=== PATIENT | male | born 1950 | race Caucasian/White ===

== ENCOUNTER 2020-12-14 08:48 | Outpatient (CLI) | payer MEDICARE, SELFPAY ==
[2020-12-14 09:33] LABS: Alanine Aminotransferase 12 U/L (4-50); Albumin Level 4.5 g/dL (3.5-5.1); Alkaline Phosphatase 51 U/L (38-126); Anion Gap 6 mmol/L (8-16); Aspartate Amino Transferase 19 U/L (17-59); Bilirubin,Total 0.5 mg/dL (0.2-1.3); Blood Urea Nitrogen 12 mg/dL (9-20); Calcium 8.9 mg/dL (8.4-10.2); Carbon Dioxide 30 mmol/L (22-30); Chloride 102 mmol/L (98-107); Cholesterol 126 mg/dL (0-200); Estimated Glomerular Filt Rate > 60; Glucose 194 mg/dL (75-110); HDL Direct 44 mg/dL; Potassium 4.6 mmol/L (3.4-5.0); Sodium 138 mmol/L (137-145); Triglycerides 148 mg/dL (<150)
[2020-12-14 09:44] LABS: LDL Cholesterol Direct 54 mg/dL
== END 2020-12-14 08:49 | disposition home or self-care (01) ==
PROVIDERS: PCP Family Medicine; Visit Provider Internal Medicine Cardiovascular Disease
DX: I42.0 Dilated cardiomyopathy (principal); I50.42 Chronic combined systolic (congestive) and diastolic (congestive) heart failure; I25.10 Atherosclerotic heart disease of native coronary artery without angina pectoris; E78.00 Pure hypercholesterolemia, unspecified
CPT/HCPCS: 36415; 80053; 80061

== ENCOUNTER 2022-02-07 16:10 | Emergency (ER) | payer MEDICARE, SELFPAY ==
[2022-02-07 16:29] VITALS: BP 109/58; PULSE 77; RESP 18; TEMP 36.3; O2SAT 100
--- NOTE | 2022-02-07 16:54 | ED.URI ---
HPI - URI/Sore Throat General Chief Complaint: Upper Respiratory Infection Stated Complaint: Sore Throat,Body Aches,Cough,Headache Time Seen by Provider: 02/07/22 16:55 History of Present Illness HPI Narrative: Gary Garcia is a 31-year-old male with a PMH of depression, high blood pressure, anxiety, diabetes, high cholesterol, and heart failure who comes with 5-7 days of cough sinus drainage and sinus pressure. He states that he sometimes feels like it is getting better and then his cough returns he has a lot of sinus pressure and congestion but does not feel like he is congested in the chest. Historically he has diabetes that is rubs on the high side, he has hypertension that is well controlled and he has congestive heart failure with an ejection fraction of the right at 30% which is up from 15 to 20% a little over a year ago, he is not currently wearing a LifeVest-ICD is now in place Related Data Home Medications Medication Instructions Recorded Confirmed ascorbic acid (vitamin C) 500 mg 500 mg PO DAILY 08/01/19 02/07/22 capsule aspirin 81 mg tablet,delayed 81 mg PO DAILY 08/01/19 02/07/22 release (Adult Low Dose Aspirin) cholecalciferol (vitamin D3) 10 1,000 unit PO DAILY 08/01/19 02/07/22 mcg (400 unit) capsule sacubitril 97 mg-valsartan 103 mg 1 tablet PO BID 05/28/20 02/07/22 tablet (Entresto) polysaccharide iron complex 150 mg 150 mg PO DAILY 11/27/21 02/07/22 iron capsule (Poly-Iron) Allergies Allergy/AdvReac Type Severity Reaction Status Date / Time cyclobenzaprine Allergy Unknown Unknown Verified 02/07/22 16:44 Review of Systems Review of Systems: CONSTITUTIONAL: Denies fever, chills, sweats. EYES: Denies visual changes, redness, discharge. ENT: Some rhinorrhea, has congestion, mild sore throat, otalgia. CARDIOVASCULAR: Denies chest pain, palpitations, edema. RESPIRATORY: Denies dyspnea, wheezing, has cough GASTROINTESTINAL: Denies abdominal pain, nausea, vomiting, diarrhea. GENITOURINARY: Denies dysuria, hematuria, abnormal discharge SKIN: Denies rash or itching. NEUROLOGIC: Denies numbness, or focal weakness. PSYCHIATRIC: Denies anxiety or depression. 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 Ischemic cardiomyopathy Mixed hyperlipidemia Surgical History Surgical History Hx laparoscopic cholecystectomy Family History Family History Father Family history of cardiovascular disease Mother Patient's mother is in good health Social History Social History Social History: Smoking packs per day: 2 Smoking cigarettes per day: 40.0 Smoking status: Former smoker Tobacco type: cigarettes Second hand tobacco smoke exposure: No Smoking end date: 06/21/86 Alcohol intake: current Alcohol use details: occasionally Substance use: never Substance use type: does not use Gender identity (if verbalized by the patient): Male Sexual Orientation (if Verbalized by the Patient): Straight or Heterosexual Comments At time of signature, I agree with nursing past medical, surgical, social and family history. There is no relevant family history pertinent to the presenting complaint. Exam Narrative: GENERAL: This is a well-nourished, well-developed patient, in mild distress. HEAD: normocephalic, atraumatic. EYES: Sclera clear/white. Vision is grossly intact. EARS: External ears normal, . Hearing grossly intact. NOSE: External nose no
== END 2022-02-07 17:20 | disposition home or self-care (01) ==
PROVIDERS: Emergency Provider Nurse Practitioner; PCP Family Medicine
DX: J32.9 Chronic sinusitis, unspecified (principal); Z87.891 Personal history of nicotine dependence; I25.10 Atherosclerotic heart disease of native coronary artery without angina pectoris; I11.0 Hypertensive heart disease with heart failure; I50.40 Unspecified combined systolic (congestive) and diastolic (congestive) heart failure; E11.9 Type 2 diabetes mellitus without complications; Z86.73 Personal history of transient ischemic attack (TIA), and cerebral infarction without residual deficits; E78.2 Mixed hyperlipidemia; Z95.810 Presence of automatic (implantable) cardiac defibrillator; Z79.82 Long term (current) use of aspirin; F41.9 Anxiety disorder, unspecified; F32.A Depression, unspecified
CPT/HCPCS: 87804; 99213; G0463

== ENCOUNTER 2022-02-13 10:48 | Emergency (ER) | payer MEDICARE, SELFPAY ==
[2022-02-13 10:58] VITALS: BP 127/75; PULSE 81; RESP 18; TEMP 37.1; O2SAT 98
--- NOTE | 2022-02-13 11:02 | ED.URI ---
HPI - URI/Sore Throat General Chief Complaint: Upper Respiratory Infection Stated Complaint: Head Congestion Time Seen by Provider: 02/13/22 11:02 Source: patient Mode of arrival: ambulatory Limitations: no limitations History of Present Illness HPI Narrative: 71-year-old male presents with complaint of sinus congestion, sinus pressure and pain, runny nose, postnasal drainage, cough for approximately 10 days. Reports that he was seen on 02/07 for similar symptoms. Was given Z-Lior and Tessalon Perles. Reports no relief of symptoms, states that sinus pressure and pain is worse. Afebrile. Is using Coricidin and Flonase. All systems reviewed and negative except as noted above. Related Data Home Medications Medication Instructions Recorded Confirmed ascorbic acid (vitamin C) 500 mg 500 mg PO DAILY 08/01/19 02/13/22 capsule aspirin 81 mg tablet,delayed 81 mg PO DAILY 08/01/19 02/13/22 release (Adult Low Dose Aspirin) cholecalciferol (vitamin D3) 10 1,000 unit PO DAILY 08/01/19 02/13/22 mcg (400 unit) capsule sacubitril 97 mg-valsartan 103 mg 1 tablet PO BID 05/28/20 02/13/22 tablet (Entresto) polysaccharide iron complex 150 mg 150 mg PO DAILY 11/27/21 02/13/22 iron capsule (Poly-Iron) Allergies Allergy/AdvReac Type Severity Reaction Status Date / Time cyclobenzaprine Allergy Unknown Unknown Verified 02/13/22 10:52 Review of Systems Review of Systems: CONSTITUTIONAL: Denies fever, chills, or sweats. EYES: Denies visual changes, redness, or discharge. ENT: Reports rhinorrhea, congestion, postnasal drainage, sinus pressure and pain. Denies sore throat, or otalgia. CARDIOVASCULAR: Denies chest pain, palpitations, or edema. RESPIRATORY: Reports cough. Denies dyspnea. GASTROINTESTINAL: Denies abdominal pain, nausea, vomiting, or diarrhea. GENITOURINARY: Denies dysuria or hematuria. SKIN: Denies rash or itching. MUSCULOSKELETAL: Denies back pain, joint pain, or myalgia. NEUROLOGIC: Denies headache, numbness, or weakness. PSYCHIATRIC: Denies anxiety or depression. All other systems reviewed are negative, except as documented in HPI. 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 Ischemic cardiomyopathy Mixed hyperlipidemia Surgical History Surgical History Hx laparoscopic cholecystectomy Family History Family History Father Family history of cardiovascular disease Mother Patient's mother is in good health Social History Social History Social History: Smoking packs per day: 2 Smoking cigarettes per day: 40.0 Smoking status: Former smoker Tobacco type: cigarettes Second hand tobacco smoke exposure: No Smoking end date: 06/21/86 Alcohol intake: current Alcohol use details: occasionally Substance use: never Substance use type: does not use Gender identity (if verbalized by the patient): Male Sexual Orientation (if Verbalized by the Patient): Straight or Heterosexual Comments At time of signature, agree with nursing past medical, surgical, social and family history. There is no relevant family history pertinent to the presenting complaint. Exam Narrative: GENERAL: This is a well-nourished, well-developed patient, in no apparent distress. HEAD: normocephalic, atraumatic. EYES: PERRL. Sclera clear/white. Vision is grossly intact. EARS: External ears normal, auditory canals clear and without drainage, fluid to bilateral TMs with no erythema o
== END 2022-02-13 11:12 | disposition home or self-care (01) ==
PROVIDERS: Emergency Provider Nurse Practitioner Family; PCP Family Medicine
DX: J01.90 Acute sinusitis, unspecified (principal); Z87.891 Personal history of nicotine dependence; I25.10 Atherosclerotic heart disease of native coronary artery without angina pectoris; I11.0 Hypertensive heart disease with heart failure; I50.40 Unspecified combined systolic (congestive) and diastolic (congestive) heart failure; E11.9 Type 2 diabetes mellitus without complications; Z86.73 Personal history of transient ischemic attack (TIA), and cerebral infarction without residual deficits; Z95.810 Presence of automatic (implantable) cardiac defibrillator; E78.2 Mixed hyperlipidemia; Z79.82 Long term (current) use of aspirin
CPT/HCPCS: 99213; G0463

== ENCOUNTER 2022-08-18 11:51 | Outpatient (CLI) | payer MEDICARE, SELFPAY ==
--- NOTE | ~2022-08-18 | XR_ITS ---
EXAM: XR knee RT min 4V DATE: 08/18/2022 12:16 HISTORY: M25.461 - Effusion, right knee INSTABILITY PAIN . COMPARISON: None available. FINDINGS: Normal mineralization. No fracture or dislocation. No lytic or blastic lesion. Moderate me dial joint space narrowing. Tricompartmental osteophytosis severe in the patellofemoral compartment. No erosion or periosteal change. Vascular calcifications. Moderate volume joint fluid. IMPRESSION: Tricompartmental osteoarthritic change. Moderate joint effusion. Reviewed, dictated and finalized at location K. BRAZER TESTER
== END 2022-08-18 11:52 | disposition home or self-care (01) ==
LOC: ANHIMG 11:54
PROVIDERS: PCP Family Medicine; Visit Provider Nurse Practitioner Gerontology
DX: M25.461 Effusion, right knee (principal); M17.11 Unilateral primary osteoarthritis, right knee
CPT/HCPCS: 73564

== ENCOUNTER 2022-08-29 10:07 | Emergency (ER) | payer MEDICARE, SELFPAY ==
[2022-08-29 10:36] VITALS: BP 135/69; PULSE 93; RESP 20; TEMP 37; O2SAT 100
--- NOTE | 2022-08-29 10:47 | ED.URI ---
HPI - URI/Sore Throat General Chief Complaint: Upper Respiratory Infection Stated Complaint: sorethroat,cough Time Seen by Provider: 08/29/22 10:48 Source: patient and RN notes reviewed Mode of arrival: ambulatory Limitations: no limitations History of Present Illness HPI Narrative: 71-year-old male with a history of CHF and DM, presented for complaint of sore throat, sinus congestion and drainage, headache and fatigue, onset yesterday. He endorses he started with a cough today. He denies sick contacts. He is taking Coricidin for symptoms. He denies Chest pain, palpitations, shortness of breath, wheezing, nausea, vomiting, diarrhea, fevers or chills. Patient does have pacemaker/defibrillator. MD elicited complaint: cough Related Data Home Medications Medication Instructions Recorded Confirmed ascorbic acid (vitamin C) 500 mg 500 mg PO DAILY 08/01/19 08/29/22 capsule aspirin 81 mg tablet,delayed 81 mg PO DAILY 08/01/19 08/29/22 release (Adult Low Dose Aspirin) cholecalciferol (vitamin D3) 10 1,000 unit PO DAILY 08/01/19 08/29/22 mcg (400 unit) capsule polysaccharide iron complex 150 mg 150 mg PO DAILY 11/27/21 08/29/22 iron capsule (Poly-Iron) sacubitril 97 mg-valsartan 103 mg 3 tablet PO BID 06/17/22 08/29/22 tablet (Entresto) Allergies Allergy/AdvReac Type Severity Reaction Status Date / Time cyclobenzaprine Allergy Unknown Unknown Verified 08/29/22 10:38 Review of Systems Review of Systems: per HPI [facility] Past Medical History Medical History BP (high blood pressure) CAD (coronary artery disease) Chronic anemia Combined congestive systolic and diastolic heart failure Diabetes mellitus Dilated cardiomyopathy History of CVA (cerebrovascular accident) 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 Ischemic cardiomyopathy Mixed hyperlipidemia Surgical History Surgical History H/O knee surgery History of back surgery History of carpal tunnel surgery Hx laparoscopic cholecystectomy Hx of hernia repair Family History Family History Father Family history of cardiovascular disease Mother Patient's mother is in good health Social History Social History Social History: Smoking packs per day: 2 Smoking cigarettes per day: 40.0 Smoking status: Former smoker Tobacco type: cigarettes Second hand tobacco smoke exposure: No Smoking end date: 06/21/86 Alcohol intake: current Alcohol use details: occasionally Substance use: never Substance use type: does not use Gender identity (if verbalized by the patient): Male Sexual Orientation (if Verbalized by the Patient): Straight or Heterosexual Exam Narrative: GENERAL: Ill-appearing, nontoxic no acute distress. HEAD: Normocephalic EYES: PERRLA, conjunctivae clear ENT: Mucous membranes moist. TM pearly martinez with dull light reflex bilaterally; no tragal tenderness. Oropharynx normal without lesions or exudate, no drooling, no hoarseness, no trismus, uvula midline. No tripod positioning, muffled voice, soft palate or pharyngeal wall bulging NECK: Supple. No lymphadenopathy CHEST: Clear to auscultation, breath sounds equal. No wheezing, rhonchi, rales, or stridor. No respiratory distress, speaks in full sentences. HEART: Regular rate and rhythm. No murmur heard. SKIN: Warm, dry, no rash. NEURO: Alert and oriented x3. PSYCH: Normal mood and affect Course Course Emergency Course: Patient is aware of diagnosis, understands and agrees to treatment plan. Anticipatory guidance given. Patient agrees to follow-up as directed and is aware of reasons to seek care at the emergency department. Portions of this record may have been cr
== END 2022-08-29 11:15 | disposition home or self-care (01) ==
PROVIDERS: Emergency Provider Nurse Practitioner Family; PCP Family Medicine
DX: B34.9 Viral infection, unspecified (principal); Z20.822 Contact with and (suspected) exposure to COVID-19; Z87.891 Personal history of nicotine dependence; I25.10 Atherosclerotic heart disease of native coronary artery without angina pectoris; I11.0 Hypertensive heart disease with heart failure; I50.40 Unspecified combined systolic (congestive) and diastolic (congestive) heart failure; E11.9 Type 2 diabetes mellitus without complications; Z86.73 Personal history of transient ischemic attack (TIA), and cerebral infarction without residual deficits; E78.2 Mixed hyperlipidemia; Z95.810 Presence of automatic (implantable) cardiac defibrillator; Z79.82 Long term (current) use of aspirin
CPT/HCPCS: 87426; 99213; C9803; G0463

== ENCOUNTER 2022-10-21 11:38 | Emergency (ER) | payer MEDICARE, SELFPAY ==
[2022-10-21 11:54] VITALS: BP 128/59; PULSE 78; RESP 20; TEMP 36.4; O2SAT 100
--- NOTE | 2022-10-21 12:14 | ED.URI ---
HPI - URI/Sore Throat General Chief Complaint: Upper Respiratory Infection Stated Complaint: congestion,cough Time Seen by Provider: 10/21/22 12:25 Source: patient and RN notes reviewed Mode of arrival: ambulatory Limitations: no limitations History of Present Illness HPI Narrative: 72-year-old male presents concern for 2 day history of sore throat, rhinorrhea, postnasal drainage, cough. He denies fever, aches, chills, sweats. Reports his granddaughter had strep throat, he was exposed to her couple weeks ago MD elicited complaint: cough, sore throat and rhinorrhea Related Data Home Medications Medication Instructions Recorded Confirmed ascorbic acid (vitamin C) 500 mg 500 mg PO DAILY 08/01/19 10/21/22 capsule aspirin 81 mg tablet,delayed 81 mg PO DAILY 08/01/19 10/21/22 release (Adult Low Dose Aspirin) cholecalciferol (vitamin D3) 10 1,000 unit PO DAILY 08/01/19 10/21/22 mcg (400 unit) capsule polysaccharide iron complex 150 mg 150 mg PO DAILY 11/27/21 10/21/22 iron capsule (Poly-Iron) sacubitril 97 mg-valsartan 103 mg 3 tablet PO BID 06/17/22 10/21/22 tablet (Entresto) carvedilol 25 mg tablet 25 mg PO Q12H 09/24/22 10/21/22 fluticasone propionate 50 2 spray intranasal DAILY 09/24/22 10/21/22 mcg/actuation nasal spray,suspension Allergies Allergy/AdvReac Type Severity Reaction Status Date / Time cyclobenzaprine AdvReac Unknown Unknown Verified 10/21/22 11:49 flexeril AdvReac Unknown Unknown Uncoded 10/21/22 11:49 spironolactone AdvReac Unknown Unknown Uncoded 10/21/22 11:49 Review of Systems Review of Systems: CONSTITUTIONAL: Denies malaise, chills, sweats, or fever. EYES: Denies visual changes, redness, or discharge. ENT: Reports rhinorrhea, congestion, and sore throat. CARDIOVASCULAR: Denies chest pain, palpitations, or edema. RESPIRATORY: Reports cough. Denies dyspnea. GASTROINTESTINAL: Denies abdominal pain, nausea, vomiting, diarrhea SKIN: Denies rash or itching. MUSCULOSKELETAL: Denies myalgia. NEUROLOGIC: Denies headache. 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 Ischemic cardiomyopathy Mixed hyperlipidemia Pacemaker Surgical History Surgical History (Updated 09/24/22 @ 09:16 by Najma Beauchamp) H/O knee surgery History of back surgery History of carpal tunnel surgery History of hand surgery Tendon Repair - Left History of repair of right rotator cuff History of surgical removal of ganglion cyst History of thyroid surgery Thyroglossal Duct Cyst Excision History of tonsillectomy and adenoidectomy Hx laparoscopic cholecystectomy Hx of cataract surgery Konstantin eyes Hx of hernia repair Inguinal - bilateral Family History Family History Father Family history of cardiovascular disease Mother Alzheimer disease Social History Social History Social History: Smoking packs per day: 2 Smoking cigarettes per day: 40.0 Smoking status: Former smoker Tobacco type: cigarettes Second hand tobacco smoke exposure: No Smoking end date: 06/21/86 Alcohol intake: current Alcohol use details: occasionally Substance use: never Substance use type: does not use Lack of Transportation: No Lack of Food: Never True Current Housing: I Have Housing Concerned About Future Housing: No Difficulty Paying Gas/Electric Bills: No Difficulty Paying for Meds: No Currently Unempl
== END 2022-10-21 12:38 | disposition home or self-care (01) ==
PROVIDERS: Emergency Provider Nurse Practitioner; PCP Family Medicine
DX: J06.9 Acute upper respiratory infection, unspecified (principal); Z20.822 Contact with and (suspected) exposure to COVID-19; I25.10 Atherosclerotic heart disease of native coronary artery without angina pectoris; I11.0 Hypertensive heart disease with heart failure; I50.40 Unspecified combined systolic (congestive) and diastolic (congestive) heart failure; E11.9 Type 2 diabetes mellitus without complications; E78.2 Mixed hyperlipidemia; Z86.73 Personal history of transient ischemic attack (TIA), and cerebral infarction without residual deficits; Z95.810 Presence of automatic (implantable) cardiac defibrillator; Z79.82 Long term (current) use of aspirin
CPT/HCPCS: 87081; 87426; 87804; 87880; 99213; C9803; G0463

== ENCOUNTER 2023-01-20 08:59 | Outpatient (CLI) | payer MEDICARE, SELFPAY ==
[2023-01-20 09:21] LABS: Basophils Absolute Auto 0.1 K/mm3 (0.0-0.1); Basophils Percent Auto 0.8 % (0.2-1.2); Eosinophils Absolute Auto 0.1 K/mm3 (0-0.3); Eosinophils Percent Auto 1.2 % (0-4.4); Hematocrit 38.7 % (42.0-52.0); Hemoglobin 12.4 g/dL (14.0-18.0); Immature Granulocyte Absolute 0.02 K/mm3 (0.00-0.031); Immature Granulocyte Percent A 0.3 % (0-0.5); Lymphocytes Absolute Auto 1.55 K/mm3 (0.9-3.2); Lymphocytes Percent Auto 23.9 % (18.3-44.2); Mean Corpuscular Volume 93.5 fl (80-100); Mean Platelet Volume 10.1 fl (7.4-10.4); Monocytes Absolute Auto 0.6 K/mm3 (0.1-0.6); Monocytes Percent Auto 9.1 % (2.6-8.5); Neutrophils Absolute Auto 4.2 K/mm3 (1.3-6.7); Neutrophils Percent Auto 64.7 % (45.5-73.1); Platelet Count Result 233 k/mm3 (150-375); Red Blood Count 4.14 M/mm3 (4.6-6.20); Red Cell Distribution Width 12.9 % (11.5-14.5); White Blood Count 6.5 K/mm3 (4.5-10.0)
[2023-01-20 09:28] LABS: Alanine Aminotransferase 21 U/L (6-50); Albumin Level 4.5 g/dL (3.5-5.1); Alkaline Phosphatase 43 U/L (38-126); Anion Gap 6 mmol/L (8-16); Aspartate Amino Transferase 24 U/L (17-59); Bilirubin,Total 0.6 mg/dL (0.2-1.3); Blood Urea Nitrogen 17 mg/dL (9-20); Calcium 8.9 mg/dL (8.4-10.2); Carbon Dioxide 30 mmol/L (22-30); Chloride 103 mmol/L (98-107); Cholesterol 119 mg/dL (0-200); Estimated Glomerular Filt Rate > 60; Glucose 157 mg/dL (65-110); HDL Direct 47 mg/dL; Potassium 5.1 mmol/L (3.4-5.0); Sodium 139 mmol/L (137-145); Triglycerides 183 mg/dL (<150)
[2023-01-20 09:31] LABS: Hemoglobin A1C 7.3 % (<5.7)
[2023-01-20 09:39] LABS: LDL Cholesterol Direct 46 mg/dL
== END 2023-01-20 09:00 | disposition home or self-care (01) ==
PROVIDERS: PCP Family Medicine; Visit Provider Physician Assistant
DX: E11.9 Type 2 diabetes mellitus without complications (principal); I25.10 Atherosclerotic heart disease of native coronary artery without angina pectoris; E78.2 Mixed hyperlipidemia
CPT/HCPCS: 36415; 80053; 80061; 83036; 85025

== ENCOUNTER 2024-06-17 11:33 | Outpatient (CLI) | payer MEDICARE, BC, SELFPAY ==
--- NOTE | ~2024-06-17 | XR_ITS ---
[id number] Ordering provider: Yajaira Roach PA-C History: . M54.2 - Cervicalgia . Comparison: None. FINDINGS: VERTEBRAL BODIES: Normal height and alignment. No visible fracture or subluxation. The dens is intact . Degenerative changes of the spine. DISK SPACES: Narrowing of the disc C5-C6. Multilevel facet joint disease. Multilevel uncovertebral iza int osteoarthritic changes. PARASPINOUS SOFT TISSUES: No prevertebral soft tissue swelling. IMPRESSION: No acute osseous abnormality cervical spine. Degenerative disc disease. Reviewed, dictated and finalized at location A.
--- NOTE | ~2024-06-17 | XR_ITS ---
Right Shoulder Technique: AP and scapular Y views were obtained. Clinical History: Cervicalgia Findings: No fracture or dislocation is seen. Osseous alignment is anatomic. Suture anchor is noted a t the humeral head. The glenohumeral and acromioclavicular joints demonstrate minimal degenerative ch robel. Soft tissues are unremarkable. Impression: Minimal degenerative change, as above. Prior rotator cuff repair surgery. Reviewed, dictated and finalized at location M. Impression: Minimal degenerative change, as above. Prior rotator cuff repair surgery.
== END 2024-06-17 11:34 | disposition home or self-care (01) ==
LOC: ANHIMG 11:42
PROVIDERS: PCP Family Medicine; Visit Provider Physician Assistant
DX: M50.322 Other cervical disc degeneration at C5-C6 level (principal); M25.511 Pain in right shoulder; Z98.890 Other specified postprocedural states
CPT/HCPCS: 72040; 73030

== ENCOUNTER 2024-08-03 10:08 | Outpatient (CLI) | payer MEDICARE, SELFPAY ==
--- NOTE | ~2024-08-03 | CT_ITS ---
EXAMINATION: CT shoulder RT w con DATE: 07/28/2024 14:14 INDICATION: Right shoulder pain. TECHNIQUE: Computed tomography (CT) of the right shoulder was performed without intravenous contrast after intra-articular injection of contrast. Automated exposure control and iterative reconstruction technique were employed. The dose-length product was 195.40 mGy-cm. COMPARISON: Right shoulder radiographs 06/17/2024 FINDINGS: Alignment is normal. No fracture. There is severe osteoarthritis of acromioclavicular joint and moderate osteoarthritis of glenohumeral joint. There are suture anchors in the greater tuberosit y. There is only faint contrast in the glenohumeral joint. Most of the contrast is in the soft tissue s anterior to the glenohumeral joint. There is no asymmetric fatty atrophy of the rotator cuff muscle bellies. There is a pacer wire in the heart. IMPRESSION: 1. Moderate osteoarthritis of glenohumeral joint and severe osteoarthritis of acromioclavicular joint . 2. Only faint contrast in the glenohumeral joint. Consider a repeat CT arthrogram. Reviewed, dictated and finalized at location A. SUPERVISOR P[employer]ES IMPRESSION: 1. Moderate osteoarthritis of glenohumeral joint and severe osteoarthritis of a cromioclavicular joint. 2. Only faint contrast in the glenohumeral joint. Consider a repeat CT arthrogr am.
--- NOTE | ~2024-08-03 | XR_ITS ---
EXAMINATION: XR fl inj shoulder RT - MR/CT DATE: 08/03/2024 10:49 INDICATION: Right shoulder pain. TECHNIQUE: A time-out was performed to verify the patient's name, date of , and procedure to b e performed. The procedure including the risks, benefits, and alternatives was discussed with the pat ient. Risks discussed included bleeding and infection. The patient understood the risks and agreed to proceed. The skin overlying the right glenohumeral joint was prepped and draped in usual sterile fas hion. Anesthetic was administered with 1% lidocaine subcutaneously. A 22 G needle was advanced unde r fluoroscopic guidance into the joint. Subsequently, injectate consisting of 12 mL of 1:4 1% lidoca ine and 1:2 Omnipaque 240 was instilled. The needle was removed and the entry site was cleaned and d ressed. There were no immediate complications. Fluoroscopy exposure time was 0.1 minutes. The total number of images was 3. FINDINGS: Real-time fluoroscopy demonstrates the needle and contrast in the right glenohumeral joint. IMPRESSION: 1. Successful right glenohumeral joint injection of contrast for subsequent CT arthrography. Reviewed, dictated and finalized at location A. STIGATIVE AGENT
--- NOTE | ~2024-08-03 | CT_ITS ---
EXAMINATION: CT shoulder RT w con DATE: 08/03/2024 10:48 INDICATION: Right shoulder pain TECHNIQUE: High resolution computed tomography (CT) arthrogram of the right shoulder was performed fo llowing intra-articular administration of iodinated contrast mixture but without intravenous contrast . Details of the joint injection of the contrast mixture have been dictated separately. Additional sa gittal and coronal reconstructions were performed. Automated exposure control and iterative reconstru ction technique were employed. The dose-length product was 191.96 mGy-cm. COMPARISON: 07/28/2024 FINDINGS: Bone alignment is normal. The acromion undersurface is curved in morphology (type II). A small anteri or subacromial spur spur. There is cystic change along the lateral rim of the acromion. Severe acromi oclavicular osteoarthritis. There is some ossification along the coracoclavicular ligament which coul d be enthesopathic or sequela of old trauma. Mild glenohumeral osteoarthritis with small marginal osteophytes along the anterior glenoid and mild anterior and inferior predominant partial-thickness cartilage loss along the glenoid. There is also s ome shallow chondral ulceration along the apical and inferomedial aspect of the humeral head with mil d chondral surface irregularity. No evident contrast fills labral tear. There are suture anchors at the anterior talar tuberosity consistent with prior supraspinatus tendon repair. Contrast extends across a couple thin linear full-thickness with longitudinal split tears whi ch extend approximately 2 cm medial to lateral along the axis of the tendon fibers of the supraspinat us tendon. There is some secondary extravasation of the intra-articular contrast through the split te ar into the subacromial/subdeltoid bursa. The tendon thickness remains normal with no larger contrast filled tear defect or discrete retracted tear margin. No evident contrast filled tear of the remaind er of the rotator cuff. No evident fatty muscular atrophy of the rotator cuff or remaining musculatur e of the shoulder girdle. The intra-articular portion of the long head biceps tendon is not identifie d. The extra articular portion of the tendon can be seen caudal to the intertubercular groove and the re is a suture anchor at the cephalad aspect of the groove suggesting possible tenodesis. Correlate w ith surgical history. Visualized portion of the right lung are clear. No pathologically enlarged lymphadenopathy right axil la or visualized portion of the right hilum or right-sided the superior mediastinum. Cardiac pacemake r lead is seen extending from the left brachiocephalic vein into the superior vena cava and beyond th e inferior margin of the field of imaging. IMPRESSION: 1. Likely functionally intact supraspinatus tendon repair with residual full-thickness thin linear lo ngitudinal split tear allowing extravasation of some of the intra-articular contrast into the subacro mial/subdeltoid bursa. 2. Mild right glenohumeral and severe acromioclavicular osteoarthritis. 3. Intra-articular portion of the long head biceps tendon is not identified. Correlate with surgical history for possible tenodesis. Reviewed, dictated and finalized at location A. [employer] T[employer] TECHNICIAN IMPRESSION: 1. Likely functionally intact supraspinatus tendon repair with residual full-th ickness thin linear longitudinal split tear allowing extravasation of some of t he intra-articular contrast into the subacromial/subdeltoid bursa. 2. Mild right glenohumeral and severe acromioclavicular osteoarthritis. 3. Intra-articular portion of the long head biceps tendon is not identified. Co rrelate with surgical history for possible tenodesis.
--- NOTE | ~2024-08-03 | CT_ITS ---
EXAMINATION: CT cervical spine wo con DATE: 07/28/2024 14:13 INDICATION: Radiculopathy, cervical region. TECHNIQUE: Computed tomography (CT) of the cervical spine was performed without intravenous contrast. Automated exposure control and iterative reconstruction technique were employed. The dose-length pro duct was 379.20 mGy-cm. COMPARISON: Cervical spine radiographs 06/17/2024 FINDINGS: There is 12 degrees levoscoliosis of cervical spine. Vertebral body heights are normal. The re is moderately decreased disc height at C5-C6 and mildly decreased disc height at C6-C7. The follow ing disc levels are specifically discussed: C2-C3: There is severe right and mild left uncovertebral joint osteoarthritis. There is severe right and mild left facet joint osteoarthritis. There is mild right neural foraminal stenosis. There is no central canal stenosis. C3-C4: There is moderate right and mild left uncovertebral joint osteoarthritis. There is severe righ t and moderate left facet joint osteoarthritis. There is mild bilateral neural foraminal stenosis. Th ere is no central canal stenosis. C4-C5: There is mild bilateral uncovertebral joint osteoarthritis. There is severe right and mild lef t facet joint osteoarthritis. There is moderate right and mild left neural foraminal stenosis. There is mild central canal stenosis. C5-C6: There is severe bilateral uncovertebral joint osteoarthritis. There is moderate bilateral face t joint osteoarthritis. There is moderate bilateral neural foraminal stenosis. There is mild central canal stenosis. C6-C7: There is mild bilateral uncovertebral joint osteoarthritis. There is severe bilateral facet iza int osteoarthritis. There is mild right neural foraminal stenosis. There is mild central canal stenos is. C7-T1: There is no uncovertebral joint osteoarthritis. There is moderate bilateral facet joint osteoa rthritis. There is mild bilateral neural foraminal stenosis. There is no central canal stenosis. IMPRESSION: 1. Moderate cervical spondylosis. Reviewed, dictated and finalized at location A. I[employer] OFFICER
--- NOTE | ~2024-08-03 | XR_ITS ---
EXAMINATION: XR fl inj shoulder RT - MR/CT DATE: 07/28/2024 14:09 INDICATION: Limited range of motion within the right shoulder TECHNIQUE: Radiographs of the right shoulder were obtained. A time-out was performed to verify the patient's name, date of , and procedure to be performed. The procedure including the risks, bene fits, and alternatives was discussed with the patient. Risks discussed included bleeding and infectio n. The patient understood the risks and agreed to proceed. The skin overlying the right glenohumeral joint was prepped and draped in usual sterile fashion. Anesthetic was administered with 1% lidocaine subcutaneously. A 22 G needle was advanced under fluoroscopic guidance into the what was presumed t o be the right glenohumeral joint space. Injectate consisting of 3 mL of Omnipaque 240, 6 mL of lido bernarda was instilled. The needle was removed and the entry site was cleaned and dressed. There were no immediate complications. Fluoroscopy exposure time was 1.3 minutes. The total number of images was 3. A series of radiographs of the right shoulder was obtained. FINDINGS: Real-time fluoroscopy demonstrates the needle and contrast projecting over the superior med ial third of the right humeral head. IMPRESSION: Technically successful fluoroscopic guided right shoulder injection for subsequent CT examination, al though without adequate contrast within the joint space for which repeat examination is recommended. Reviewed, dictated and finalized at location A. HT [employer]K OFFICER IMPRESSION: Technically successful fluoroscopic guided right shoulder injection for subsequ ent CT examination, although without adequate contrast within the joint space f or which repeat examination is recommended.
== END 2024-08-03 10:09 | disposition home or self-care (01) ==
LOC: ANHIMG 10:09
PROVIDERS: PCP Family Medicine; Visit Provider Anesthesiology Pain Medicine
DX: M19.011 Primary osteoarthritis, right shoulder (principal); M47.812 Spondylosis without myelopathy or radiculopathy, cervical region; Z98.890 Other specified postprocedural states
CPT/HCPCS: 23350; 72125; 73201; 77002; J2003; Q9966